=== PATIENT | female | born 1980 | race Caucasian/White ===

== ENCOUNTER → 2016-06-14 | Outpatient (CLI) | payer BC ==
[~2016-06-14] MED LIST: BUTALB-APAP-CA1 EACH PO; CETIRIZINE HCL10 M2 PO; ENDOCET 5-3251 EACH PO; FERROUS GLUCON324 MG PO; FIORICET 50-301 EACH PO; IRON325 MG PO; LABETALOL HCL100 MG PO; LABETALOL HCL200 MG PO; LISINOPRIL10 MG PO; MOTRIN800 MG PO; NIFEDIPINE ER30 MG PO; PERCOCET 5/31 TABLET PO; PRENATAL TABLE1 EAC3 PO; SERTRALINE HCL25 MG PO; ZOFRAN4 MG PO; ZOLOFT25 MG PO; ZOLOFT50 MG PO; ZYRTEC10 M3 PO
== END | disposition home or self-care (01) ==
LOC: CDC 10:30
DX: Z01.810 Encounter for preprocedural cardiovascular examination (principal); R00.2 Palpitations
CPT/HCPCS: 93000

== ENCOUNTER 2016-06-18 07:27 | Day surgery (SDC) | payer BC ==
[~2016-06-18] VITALS: Ht 152.4 cm; Wt 68.0 kg
[~2016-06-18 07:27] MED LIST changes: -PERCOCET 5/31 TABLET PO
[2016-06-18 08:24] VITALS: BP 116/75
[2016-06-18] MEDS ORDERED: MOTRIN800 MG PO (10:24)
[2016-06-18] MEDS ORDERED: PERCOCET 5/31 TABLET PO (10:24)
[2016-06-18 11:25] VITALS: BP 135/87
[2016-06-18 12:30] VITALS: BP 130/89
== END 2016-06-18 12:45 | disposition home or self-care (01) ==
LOC: SDC
DX: N93.9 Abnormal uterine and vaginal bleeding, unspecified (principal); N84.0 Polyp of corpus uteri; I10 Essential (primary) hypertension; Z87.891 Personal history of nicotine dependence; F41.8 Other specified anxiety disorders; Z82.0 Family history of epilepsy and other diseases of the nervous system
CPT/HCPCS: 88305; J1100; J1885; J2175; J2250; J2405; J3010

== ENCOUNTER 2017-03-18 13:06 | Emergency (ER) | payer BC ==
[~2017-03-18] VITALS: Ht 152.4 cm; Wt 73.8 kg
[~2017-03-18 13:06] MED LIST changes: +PERCOCET 5/31 TABLET PO
[2017-03-18 13:37] LABS: ADD MIUA? YES; BILIRUBIN NEGATIVE; BLOOD SMALL; COLOR YELLOW ((YELLOW)); GLUCOSE (STRIP) NEGATIVE; KETONES NEGATIVE; LEUKOCYTES NEGATIVE; NITRITE NEGATIVE; PROTEIN (STRIP) NEGATIVE; SPECIFIC GRAVITY 1.027 (1.000-1.030); UROBILINOGEN 0.2 MG/DL (0.2-1.0)
[2017-03-18 13:51] LABS: BACTERIA RARE /HPF; EPITHELIAL CELLS 1+ /HPF; MUCUS NONE SEEN /LPF; RED BLOOD CELLS RARE /HPF (0-5); UCUL ADDED? NO; WHITE BLOOD CELLS NONE SEEN /HPF (0-5)
[2017-03-18 14:25] LABS: HEMATOCRIT 37.3 % (36.0-46.0); MCH 29.1 PG (29.0-34.0); MCV 85.6 FL (83-99); MEAN PLAT.VOLUME 9.9 uM^3 (9.5-12.4); PLATELET COUNT 316 K/uL (156-360); RBC DIS.WIDTH-CV 12.6 % (11.8-14.6); RBC DIS.WIDTH-SD 39.2 % (39-53); RED BLOOD COUNT 4.36 M/uL (3.80-5.20)
[2017-03-18 14:34] LABS: CHLORIDE 110 mEq/L (99-109); POTASSIUM 3.9 mEq/L (3.7-5.4); SODIUM 141 mEq/L (136-147)
[2017-03-18 14:37] LABS: GLUCOSE 115 mg/dL (70-99)
[2017-03-18 14:38] LABS: ANION GAP 13 MEQ/L (2-14)
[2017-03-18 14:39] LABS: TOTAL BILIRUBIN 0.9 mg/dL (0.0-1.0)
[2017-03-18 14:40] LABS: ALKALINE PHOSPHATASE 62 IU/L (3-129); GFR ESTIMATE (CALCULATED) > 59 mL/min/
[2017-03-18 14:41] LABS: UREA NITROGEN (BUN) 19 mg/dL (9-23)
[2017-03-18 14:50] LABS: QUANTITATIVE HCG < 4.0 MIU/ML
[2017-03-18] MEDS ORDERED: ZOFRAN ODT4 MG PO (16:22)
[2017-03-18] MEDS ORDERED: BENTYL20 MG PO (16:22)
[2017-03-18 16:35] VITALS: BP 119/81
== END 2017-03-18 16:36 | disposition home or self-care (01) ==
LOC: EME 13:06
DX: R10.11 Right upper quadrant pain (principal); D64.9 Anemia, unspecified; I10 Essential (primary) hypertension; F32.9 Major depressive disorder, single episode, unspecified; Z87.891 Personal history of nicotine dependence
CPT/HCPCS: 74176; 80053; 81003; 84702; 85027; 99281; 99284; J3010

== ENCOUNTER → 2017-08-12 | Outpatient (CLI) | payer OTHER ==
[~2017-08-12] MED LIST changes: +BENTYL20 MG PO; +ZOFRAN ODT4 MG PO
== END | disposition home or self-care (01) ==
LOC: CDC 11:14
DX: Z01.810 Encounter for preprocedural cardiovascular examination (principal); I10 Essential (primary) hypertension; N94.6 Dysmenorrhea, unspecified
CPT/HCPCS: 93000